=== PATIENT | male | born 1975 | race Caucasian/White ===

== ENCOUNTER 2019-11-25 22:34 | Emergency (ER) | payer OTHER ==
[~2019-11-25] VITALS: Ht 154.9 cm; Wt 124.7 kg
== END 2019-11-26 03:00 | disposition home or self-care (01) ==
LOC: ER 22:34
DX: G81.94 Hemiplegia, unspecified affecting left nondominant side (principal)

== ENCOUNTER → 2022-08-08 | Outpatient (CLI) | payer OTHER | END | disposition home or self-care (01) | LOC: RAD 16:17 | PROVIDERS: ATTEND Internal Medicine | DX: J13 Pneumonia due to Streptococcus pneumoniae (principal) ==